=== PATIENT | female | born 1945 | race Caucasian/White ===

== ENCOUNTER 2021-04-16 14:51 | Inpatient (IN) | payer MEDICARE ==
[2021-04-16] MEDS ORDERED: Hydrocodone-Acetamin 15 ML UDCUP PO PRN (17:30)
[2021-04-16 17:34] VITALS: BMI 29.7
[2021-04-16] MEDS: Acetaminophen 325 MG TAB PO SCH (20:22)
[2021-04-16] MEDS: glipiZIDE 5 MG TAB PO SCH (20:23)
[2021-04-16] MEDS: Zolpidem Tartrate 5 MG TAB PO SCH (20:23)
[2021-04-16] MEDS: Pregabalin 50 MG CAP PO SCH (20:23)
[2021-04-16] MEDS: Aspirin 81 mg Enteric Coated Tablet PO SCH (20:24)
[2021-04-16] MEDS: Senokot S 8.6-50 MG TAB PO SCH (20:24)
[2021-04-16] MEDS: Famotidine 20 MG TAB PO SCH (20:24)
[2021-04-16] MEDS ORDERED: Metamucil PACK PO SCH (21:00)
[2021-04-16] MEDS: Ibuprofen 200 MG TAB PO PRN (21:50)
[2021-04-17] MEDS: Acetaminophen 325 MG TAB PO SCH ×4 (00:02→18:25)
[2021-04-17] MEDS: Famotidine 20 MG TAB PO SCH ×2 (09:07→20:39)
[2021-04-17] MEDS: Pregabalin 50 MG CAP PO SCH ×2 (09:07→20:40)
[2021-04-17] MEDS: Aspirin 81 mg Enteric Coated Tablet PO SCH ×2 (09:07→20:40)
[2021-04-17] MEDS: Polyethylene Glycol 3350 17 GM Packet PO SCH (09:09)
[2021-04-17] MEDS: Lisinopril 20 MG TAB PO SCH (09:09)
[2021-04-17] MEDS: Senokot S 8.6-50 MG TAB PO SCH ×2 (09:09→20:41)
[2021-04-17] MEDS: Hydrochlorothiazide 25 MG TAB PO SCH (09:09)
[2021-04-17] MEDS: glipiZIDE 5 MG TAB PO SCH ×3 (09:10→20:40)
[2021-04-17] MEDS: HYDROcodone/Acetaminophen 5/325 mg Tablet PO PRN (11:19)
[2021-04-17] MEDS: Zolpidem Tartrate 5 MG TAB PO SCH (20:39)
[2021-04-17] MEDS: Ibuprofen 200 MG TAB PO PRN (20:40)
[2021-04-18] MEDS: Acetaminophen 325 MG TAB PO SCH ×5 (00:42→23:53)
[2021-04-18] MEDS ORDERED: cloNIDine 0.1 MG TAB PO PRN (06:32)
[2021-04-18] MEDS: Polyethylene Glycol 3350 17 GM Packet PO SCH (07:59)
[2021-04-18] MEDS: Hydrochlorothiazide 25 MG TAB PO SCH (07:59)
[2021-04-18] MEDS: Ibuprofen 200 MG TAB PO PRN (08:00)
[2021-04-18] MEDS: Aspirin 81 mg Enteric Coated Tablet PO SCH ×2 (08:01→20:20)
[2021-04-18] MEDS: Famotidine 20 MG TAB PO SCH ×2 (08:01→20:20)
[2021-04-18] MEDS: Lisinopril 20 MG TAB PO SCH (08:01)
[2021-04-18] MEDS: Pregabalin 50 MG CAP PO SCH ×2 (08:01→20:20)
[2021-04-18] MEDS: Senokot S 8.6-50 MG TAB PO SCH ×2 (08:02→20:20)
[2021-04-18] MEDS: glipiZIDE 5 MG TAB PO SCH ×3 (08:02→20:20)
[2021-04-18] MEDS: Zolpidem Tartrate 5 MG TAB PO SCH (20:20)
[2021-04-19] MEDS: Acetaminophen 325 MG TAB PO SCH ×4 (05:17→23:39)
[2021-04-19] MEDS: Polyethylene Glycol 3350 17 GM Packet PO SCH (08:16)
[2021-04-19] MEDS: Pregabalin 50 MG CAP PO SCH ×2 (08:16→20:33)
[2021-04-19] MEDS: Hydrochlorothiazide 25 MG TAB PO SCH (08:18)
[2021-04-19] MEDS: Aspirin 81 mg Enteric Coated Tablet PO SCH ×2 (08:19→20:33)
[2021-04-19] MEDS: glipiZIDE 5 MG TAB PO SCH ×3 (08:19→20:34)
[2021-04-19] MEDS: Famotidine 20 MG TAB PO SCH ×2 (08:19→20:34)
[2021-04-19] MEDS: Senokot S 8.6-50 MG TAB PO SCH ×2 (08:19→20:33)
[2021-04-19] MEDS: Lisinopril 20 MG TAB PO SCH (08:19)
[2021-04-19] MEDS: Ibuprofen 200 MG TAB PO PRN (08:19)
[2021-04-19] MEDS: HYDROcodone/Acetaminophen 5/325 mg Tablet PO PRN ×2 (13:46→19:23)
[2021-04-19] MEDS: Zolpidem Tartrate 5 MG TAB PO SCH (20:34)
[2021-04-20] MEDS: Acetaminophen 325 MG TAB PO SCH ×3 (05:18→17:24)
[2021-04-20] MEDS: Polyethylene Glycol 3350 17 GM Packet PO SCH ×2 (09:02→20:24)
[2021-04-20] MEDS: Famotidine 20 MG TAB PO SCH ×2 (09:03→20:23)
[2021-04-20] MEDS: Aspirin 81 mg Enteric Coated Tablet PO SCH ×2 (09:03→20:23)
[2021-04-20] MEDS: Hydrochlorothiazide 25 MG TAB PO SCH (09:04)
[2021-04-20] MEDS: HYDROcodone/Acetaminophen 5/325 mg Tablet PO PRN ×3 (09:05→21:48)
[2021-04-20] MEDS: Pregabalin 50 MG CAP PO SCH ×2 (09:05→20:24)
[2021-04-20] MEDS: glipiZIDE 5 MG TAB PO SCH ×3 (09:05→20:24)
[2021-04-20] MEDS: Lisinopril 20 MG TAB PO SCH (09:07)
[2021-04-20] MEDS: Senokot S 8.6-50 MG TAB PO SCH ×2 (09:08→20:25)
[2021-04-20] MEDS: Cyclobenzaprine 10 MG TAB PO PRN (12:12)
[2021-04-20 19:10] LABS: Bilirubin Negative (Negative); Blood, Urine Trace (Negative); Clarity Clear (Clear); Glucose, Urine (Dipstick) Negative (Negative); Ketone, Urine Negative (Negative); Leukocyte Large (Negative); Nitrite Negative (Negative); Protein, Urine (Dipstick) Negative (Neg-Trace); Specific Gravity, Urine 1.025 (1.005-1.030); Urobilinogen 0.2 mg/dL (Less than 2); pH, Urine 5.5 (5.0-9.0)
[2021-04-20 19:29] LABS: RBC/HPF 0-3 HPF (0-3)
[2021-04-20 19:30] LABS: Bacteria/HPF 2+ HPF (None Seen); WBC/HPF Greater than 50 HPF (0-3)
[2021-04-20] MEDS: Zolpidem Tartrate 5 MG TAB PO SCH (20:24)
[2021-04-21] MEDS: Acetaminophen 325 MG TAB PO SCH ×4 (00:19→17:47)
[2021-04-21] MEDS: Polyethylene Glycol 3350 17 GM Packet PO SCH ×2 (08:20→20:41)
[2021-04-21] MEDS: Hydrochlorothiazide 25 MG TAB PO SCH (08:23)
[2021-04-21] MEDS: Pregabalin 50 MG CAP PO SCH ×2 (08:23→20:43)
[2021-04-21] MEDS: Famotidine 20 MG TAB PO SCH ×2 (08:23→20:41)
[2021-04-21] MEDS: Aspirin 81 mg Enteric Coated Tablet PO SCH ×2 (08:23→20:42)
[2021-04-21] MEDS: glipiZIDE 5 MG TAB PO SCH ×3 (08:23→20:42)
[2021-04-21] MEDS: Senokot S 8.6-50 MG TAB PO SCH ×2 (08:23→20:44)
[2021-04-21] MEDS: Nitrofurantoin Monohyd/M-Cryst 100 MG CAP PO SCH ×2 (08:23→20:42)
[2021-04-21] MEDS: Lisinopril 20 MG TAB PO SCH (08:24)
[2021-04-21] MEDS: HYDROcodone/Acetaminophen 5/325 mg Tablet PO PRN (09:54)
[2021-04-21] MEDS: Ibuprofen 200 MG TAB PO PRN (15:57)
[2021-04-21] MEDS: Zolpidem Tartrate 5 MG TAB PO SCH (20:42)
[2021-04-22] MEDS: Acetaminophen 325 MG TAB PO SCH ×5 (00:40→23:41)
[2021-04-22] MEDS: Nitrofurantoin Monohyd/M-Cryst 100 MG CAP PO SCH ×2 (08:38→20:49)
[2021-04-22] MEDS: Senokot S 8.6-50 MG TAB PO SCH ×2 (08:38→20:49)
[2021-04-22] MEDS: glipiZIDE 5 MG TAB PO SCH ×3 (08:39→20:49)
[2021-04-22] MEDS: Famotidine 20 MG TAB PO SCH ×2 (08:39→20:49)
[2021-04-22] MEDS: Hydrochlorothiazide 25 MG TAB PO SCH (08:39)
[2021-04-22] MEDS: Aspirin 81 mg Enteric Coated Tablet PO SCH ×2 (08:39→20:49)
[2021-04-22] MEDS: Lisinopril 20 MG TAB PO SCH (08:39)
[2021-04-22] MEDS: Pregabalin 50 MG CAP PO SCH ×2 (08:39→20:50)
[2021-04-22] MEDS: HYDROcodone/Acetaminophen 5/325 mg Tablet PO PRN (08:40)
[2021-04-22] MEDS: Polyethylene Glycol 3350 17 GM Packet PO SCH ×2 (08:41→20:50)
[2021-04-22] MEDS: Ibuprofen 200 MG TAB PO PRN ×2 (12:58→23:42)
[2021-04-22] MEDS: Cyclobenzaprine 10 MG TAB PO PRN (15:49)
[2021-04-22] MEDS: Zolpidem Tartrate 5 MG TAB PO SCH (20:49)
[2021-04-22] MEDS: tiZANidine HCl 4 MG TAB PO SCH (20:50)
[2021-04-23] MEDS: Acetaminophen 325 MG TAB PO SCH ×4 (05:22→23:40)
[2021-04-23] MEDS: Hydrochlorothiazide 25 MG TAB PO SCH (08:57)
[2021-04-23] MEDS: Lisinopril 20 MG TAB PO SCH (08:58)
[2021-04-23] MEDS: Famotidine 20 MG TAB PO SCH ×2 (08:59→20:54)
[2021-04-23] MEDS: Senokot S 8.6-50 MG TAB PO SCH ×2 (08:59→20:57)
[2021-04-23] MEDS: Pregabalin 50 MG CAP PO SCH ×2 (08:59→20:55)
[2021-04-23] MEDS: Nitrofurantoin Monohyd/M-Cryst 100 MG CAP PO SCH ×2 (08:59→20:55)
[2021-04-23] MEDS: tiZANidine HCl 4 MG TAB PO SCH ×2 (08:59→20:55)
[2021-04-23] MEDS: glipiZIDE 5 MG TAB PO SCH ×3 (09:00→20:55)
[2021-04-23] MEDS: Aspirin 81 mg Enteric Coated Tablet PO SCH ×2 (09:00→20:54)
[2021-04-23] MEDS: Polyethylene Glycol 3350 17 GM Packet PO SCH ×2 (09:03→20:54)
[2021-04-23] MEDS: HYDROcodone/Acetaminophen 5/325 mg Tablet PO PRN ×2 (11:24→18:49)
[2021-04-23] MEDS: Zolpidem Tartrate 5 MG TAB PO SCH (20:55)
[2021-04-24] MEDS: Acetaminophen 325 MG TAB PO SCH ×3 (05:58→19:51)
[2021-04-24] MEDS: HYDROcodone/Acetaminophen 5/325 mg Tablet PO PRN ×3 (06:50→21:24)
[2021-04-24] MEDS: Polyethylene Glycol 3350 17 GM Packet PO SCH ×2 (08:39→21:04)
[2021-04-24] MEDS: Famotidine 20 MG TAB PO SCH ×2 (08:39→21:04)
[2021-04-24] MEDS: Pregabalin 50 MG CAP PO SCH ×2 (08:40→21:05)
[2021-04-24] MEDS: Hydrochlorothiazide 25 MG TAB PO SCH (08:41)
[2021-04-24] MEDS: Nitrofurantoin Monohyd/M-Cryst 100 MG CAP PO SCH ×2 (08:41→21:04)
[2021-04-24] MEDS: Aspirin 81 mg Enteric Coated Tablet PO SCH ×2 (08:42→21:04)
[2021-04-24] MEDS: glipiZIDE 5 MG TAB PO SCH ×3 (08:43→21:04)
[2021-04-24] MEDS: tiZANidine HCl 4 MG TAB PO SCH ×2 (08:43→21:04)
[2021-04-24] MEDS: Lisinopril 20 MG TAB PO SCH (08:43)
[2021-04-24] MEDS: Senokot S 8.6-50 MG TAB PO SCH ×2 (08:43→21:04)
[2021-04-24] MEDS: Cyclobenzaprine 10 MG TAB PO PRN (15:28)
[2021-04-24] MEDS: Zolpidem Tartrate 5 MG TAB PO SCH (21:04)
[2021-04-25] MEDS: Acetaminophen 325 MG TAB PO SCH ×4 (00:03→18:21)
[2021-04-25] MEDS: HYDROcodone/Acetaminophen 5/325 mg Tablet PO PRN ×2 (06:03→15:41)
[2021-04-25] MEDS: Polyethylene Glycol 3350 17 GM Packet PO SCH ×2 (09:10→21:36)
[2021-04-25] MEDS: Pregabalin 50 MG CAP PO SCH ×2 (09:11→21:37)
[2021-04-25] MEDS: Senokot S 8.6-50 MG TAB PO SCH ×2 (09:11→21:37)
[2021-04-25] MEDS: tiZANidine HCl 4 MG TAB PO SCH ×2 (09:12→21:37)
[2021-04-25] MEDS: Hydrochlorothiazide 25 MG TAB PO SCH (09:12)
[2021-04-25] MEDS: Nitrofurantoin Monohyd/M-Cryst 100 MG CAP PO SCH ×2 (09:12→21:39)
[2021-04-25] MEDS: glipiZIDE 5 MG TAB PO SCH ×3 (09:12→21:39)
[2021-04-25] MEDS: Lisinopril 20 MG TAB PO SCH (09:12)
[2021-04-25] MEDS: Famotidine 20 MG TAB PO SCH ×2 (09:12→21:36)
[2021-04-25] MEDS: Aspirin 81 mg Enteric Coated Tablet PO SCH ×2 (09:12→21:37)
[2021-04-25] MEDS: Zolpidem Tartrate 5 MG TAB PO SCH (21:37)
[2021-04-26] MEDS: Acetaminophen 325 MG TAB PO SCH ×4 (00:06→18:07)
[2021-04-26] MEDS: HYDROcodone/Acetaminophen 5/325 mg Tablet PO PRN ×2 (08:45→18:44)
[2021-04-26] MEDS: Pregabalin 50 MG CAP PO SCH ×2 (08:46→20:47)
[2021-04-26] MEDS: Polyethylene Glycol 3350 17 GM Packet PO SCH ×2 (08:46→20:45)
[2021-04-26] MEDS: Famotidine 20 MG TAB PO SCH ×2 (08:47→20:46)
[2021-04-26] MEDS: Aspirin 81 mg Enteric Coated Tablet PO SCH ×2 (08:47→20:46)
[2021-04-26] MEDS: glipiZIDE 5 MG TAB PO SCH ×3 (08:47→20:46)
[2021-04-26] MEDS: Lisinopril 20 MG TAB PO SCH (08:47)
[2021-04-26] MEDS: Hydrochlorothiazide 25 MG TAB PO SCH (08:47)
[2021-04-26] MEDS: Nitrofurantoin Monohyd/M-Cryst 100 MG CAP PO SCH ×2 (08:47→20:45)
[2021-04-26] MEDS: tiZANidine HCl 4 MG TAB PO SCH ×2 (08:48→20:46)
[2021-04-26] MEDS: Senokot S 8.6-50 MG TAB PO SCH ×2 (08:49→20:45)
[2021-04-26] MEDS: Cyclobenzaprine 10 MG TAB PO PRN (14:58)
[2021-04-26] MEDS: Zolpidem Tartrate 5 MG TAB PO SCH (20:45)
[2021-04-26] MEDS: Ibuprofen 200 MG TAB PO PRN (20:46)
[2021-04-27] MEDS: Acetaminophen 325 MG TAB PO SCH ×4 (00:03→18:23)
[2021-04-27] MEDS: Ibuprofen 200 MG TAB PO PRN ×2 (05:11→20:14)
[2021-04-27] MEDS: glipiZIDE 5 MG TAB PO SCH ×3 (08:31→20:11)
[2021-04-27] MEDS: Pregabalin 50 MG CAP PO SCH ×2 (08:31→20:13)
[2021-04-27] MEDS: tiZANidine HCl 4 MG TAB PO SCH ×2 (08:31→20:12)
[2021-04-27] MEDS: Polyethylene Glycol 3350 17 GM Packet PO SCH ×2 (08:31→20:11)
[2021-04-27] MEDS: Nitrofurantoin Monohyd/M-Cryst 100 MG CAP PO SCH ×2 (08:32→20:11)
[2021-04-27] MEDS: Famotidine 20 MG TAB PO SCH ×2 (08:32→20:13)
[2021-04-27] MEDS: Aspirin 81 mg Enteric Coated Tablet PO SCH ×2 (08:32→20:11)
[2021-04-27] MEDS: Hydrochlorothiazide 25 MG TAB PO SCH (08:32)
[2021-04-27] MEDS: Lisinopril 20 MG TAB PO SCH (08:32)
[2021-04-27] MEDS: Senokot S 8.6-50 MG TAB PO SCH ×2 (08:33→20:12)
[2021-04-27] MEDS: HYDROcodone/Acetaminophen 5/325 mg Tablet PO PRN (15:50)
[2021-04-27] MEDS: Zolpidem Tartrate 5 MG TAB PO SCH (20:11)
[2021-04-28] MEDS: HYDROcodone/Acetaminophen 5/325 mg Tablet PO PRN ×2 (04:48→09:06)
[2021-04-28] MEDS: Acetaminophen 325 MG TAB PO SCH ×5 (04:49→23:46)
[2021-04-28] MEDS: Pregabalin 50 MG CAP PO SCH ×2 (09:07→20:54)
[2021-04-28] MEDS: Polyethylene Glycol 3350 17 GM Packet PO SCH ×2 (09:07→20:52)
[2021-04-28] MEDS: tiZANidine HCl 4 MG TAB PO SCH ×2 (09:08→20:54)
[2021-04-28] MEDS: Aspirin 81 mg Enteric Coated Tablet PO SCH ×2 (09:08→20:54)
[2021-04-28] MEDS: Senokot S 8.6-50 MG TAB PO SCH ×2 (09:08→20:54)
[2021-04-28] MEDS: glipiZIDE 5 MG TAB PO SCH ×3 (09:08→20:54)
[2021-04-28] MEDS: Famotidine 20 MG TAB PO SCH ×2 (09:08→20:54)
[2021-04-28] MEDS: Lisinopril 20 MG TAB PO SCH (09:08)
[2021-04-28] MEDS: Hydrochlorothiazide 25 MG TAB PO SCH (09:09)
[2021-04-28] MEDS: Ibuprofen 200 MG TAB PO PRN (15:51)
[2021-04-28] MEDS: Cyclobenzaprine 10 MG TAB PO PRN (17:13)
[2021-04-28] MEDS: Zolpidem Tartrate 5 MG TAB PO SCH (20:54)
[2021-04-29 05:12] VITALS: TEMP 97.6
[2021-04-29] MEDS: Acetaminophen 325 MG TAB PO SCH ×2 (05:46→12:30)
[2021-04-29] MEDS: Aspirin 81 mg Enteric Coated Tablet PO SCH (08:18)
[2021-04-29] MEDS: glipiZIDE 5 MG TAB PO SCH (08:18)
[2021-04-29] MEDS: Famotidine 20 MG TAB PO SCH (08:19)
[2021-04-29] MEDS: Lisinopril 20 MG TAB PO SCH (08:19)
[2021-04-29] MEDS: Hydrochlorothiazide 25 MG TAB PO SCH (08:20)
[2021-04-29] MEDS: Senokot S 8.6-50 MG TAB PO SCH (08:20)
[2021-04-29] MEDS: Ibuprofen 200 MG TAB PO PRN (08:20)
[2021-04-29] MEDS: Polyethylene Glycol 3350 17 GM Packet PO SCH (08:22)
[2021-04-29] MEDS: Pregabalin 50 MG CAP PO SCH (08:22)
[2021-04-29 08:23] VITALS: BP 136/63
[2021-04-29] MEDS: tiZANidine HCl 4 MG TAB PO SCH (08:23)
== END 2021-04-29 13:30 | disposition home health service (06) | DRG 561 ==
LOC: BURMED 16:10
PROVIDERS: ADMIT Family Medicine; ATTEND Family Medicine
DX: S72.001D Fracture of unspecified part of neck of right femur, subsequent encounter for closed fracture with routine healing (principal); I10 Essential (primary) hypertension; E11.9 Type 2 diabetes mellitus without complications; F41.9 Anxiety disorder, unspecified; F32.9 Major depressive disorder, single episode, unspecified; R33.9 Retention of urine, unspecified; Z93.3 Colostomy status
CPT/HCPCS: 36416; 81001; 87077; 87086; 87186